=== PATIENT | female | born 1960 | race Caucasian/White ===

== ENCOUNTER 2017-02-09 15:59 | Observation (INO) | payer OTHER ==
[~2017-02-09] VITALS: Ht 160 cm; Wt 95.3 kg
[~2017-02-09 15:59] MED LIST: ALLEGRA 180MG180 MG PO; ARNUITY IH; ASPIRIN 81M81 MG/TA2 PO; CLEOCIN HCL300 MG PO; CRESTOR 10MG10 MG PO; CYMBALTA 30MG30 MG PO; DILAUDID 4MG TAB4 MG PO; HCTZ 25MG TAB25 MG PO; KLOR-CON 1010 MEQ PO; LASIX 20MG TABL20 MG PO; LIDODERM PATCH TP; MASON NATURAL1200 MG PO; NASONEX SPRAY17 GM NS; NORCO 325 MG-7.1 TAB; NUCYNTA ER50 MG PO; PROZAC40 MG PO; SINGULAIR 110 MG/TAB; VITAMIN D5000 IU PO; VITAMIND3 5000 PO; VOLTAREN GEL 1%1 TU TP; ZANAFLEX 4MG TAB4 MG PO; ZEBETA 5MG5 MG PO; ZESTRIL 10MG10 MG PO
[2017-02-09 16:19] LABS: BASO % 0.4 % (0.0-2.0); EOS # 0.1 (0.0-0.7); GRAN # 4.9 (1.4-6.5); GRAN % 53.4 % (42.2-75.2); HEMATOCRIT 44.2 % (37.0-47.0); HEMOGLOBIN 15.1 g/dl (12.5-16.0); LYMPH # 3.5 (1.2-3.4); MEAN CELL VOLUME 88 fl (80.0-100.0); MEAN CORPUSCULAR HEMOGLOBIN 30 pg (27.0-31.0); MEAN CORPUSCULAR HGB CONC 34 g/dl (33.0-37.0); MEAN PLATELET VOLUME 9.5 fl (7.4-10.4); MONO # 0.7 (0.1-0.6); PLATELET COUNT 267 K/mm3 (130-400); RED BLOOD COUNT 5.03 M/mm3 (4.10-5.30); REDCELL DISTRIBUTION WIDTH-CV 13.2 % (11.5-14.5); WHITE BLOOD COUNT 9.2 K/mm3 (4.8-10.8)
[2017-02-09 16:23] LABS: PROTHROMBIN TIME 11.2 SECONDS (9.7-12.8)
[2017-02-09] MEDS ORDERED: FLOVENT DI250 MCG/Ac IH (16:31)
[2017-02-09] MEDS ORDERED: STIOLTO RESPIMAT4 GM INH (16:31)
[2017-02-09] MEDS ORDERED: VENTOLIN0.09 MG IH (16:32)
[2017-02-09] MEDS ORDERED: CRANBERRY500 M3 PO (16:33)
[2017-02-09] MEDS ORDERED: THE MEDICINE S200 M2 PO (16:33)
[2017-02-09 16:36] LABS: ADJUSTED CALCIUM 9.1 mg/dL (8.4-10.2); ALANINE AMINOTRANSFERASE 36 U/L (9-52); ALBUMIN 4.4 gm/dL (3.5-5.0); ALKALINE PHOSPHATASE 59 U/L (50-136); ANION GAP 10 mmol/L (7-16); BILIRUBIN,TOTAL 0.7 mg/dL (0.0-1.0); BLOOD UREA NITROGEN 15 mg/dL (7-17); CALCIUM 9.4 mg/dL (8.4-10.2); CARBON DIOXIDE 24 mmol/L (22-30); CHLORIDE 104 mmol/L (98-107); CREATINE KINASE 74 U/L (30-135); CREATININE, serum 0.92 mg/dL (0.52-1.25); GLUCOSE 89 mg/dL (74-106); LIPASE 214 U/L (23-300); POTASSIUM 4.1 mmol/L (3.4-5.0); SODIUM 138 mmol/L (137-145); TOTAL PROTEIN 7.3 gm/dL (6.4-8.2)
[2017-02-09 16:47] LABS: B-TYPE NATRIURETIC PEPTIDE 54 pg/mL (0-125); TROPONIN-I < 0.012 ng/mL (0.000-0.034)
[2017-02-09 20:54] VITALS: BP 113/68; PULSE 52; TEMP 97.8
[2017-02-09 23:28] VITALS: BP 119/97; PULSE 48; TEMP 97.4
[2017-02-10] VITALS (7 sets, daily range): BP systolic 118–143; BP diastolic 52–78; PULSE 48–86; TEMP 97.9–98
[2017-02-10 07:52] LABS: TROPONIN-I < 0.012 ng/mL (0.000-0.034)
[2017-02-10] MEDS ORDERED: PRILOSEC 20MG20 MG PO (13:21)
== END 2017-02-10 14:00 | disposition home or self-care (01) ==
LOC: COL.ER 15:59 → MEDICAL 18:09
PROVIDERS: Emergency Medicine
DX: R07.9 Chest pain, unspecified (principal); I10 Essential (primary) hypertension; J45.909 Unspecified asthma, uncomplicated; M54.9 Dorsalgia, unspecified; E78.00 Pure hypercholesterolemia, unspecified; F17.210 Nicotine dependence, cigarettes, uncomplicated; G89.29 Other chronic pain; Z79.82 Long term (current) use of aspirin; Z90.711 Acquired absence of uterus with remaining cervical stump; Z90.49 Acquired absence of other specified parts of digestive tract; Z85.3 Personal history of malignant neoplasm of breast; Z82.49 Family history of ischemic heart disease and other diseases of the circulatory system
CPT/HCPCS: A9502; G0378; J1170; J1650; J2270; J2405; J2785; J7030